=== PATIENT | female | born 2000 | race Caucasian/White ===

== ENCOUNTER 2024-12-29 10:45 | Emergency (ER) | payer OTHER, SELFPAY ==
[~2024-12-29] VITALS: Ht 167.6 cm; Wt 91.6 kg
[2024-12-29] MEDS: NS (Normal Saline) 0.9% 1,000 ML IV ONE (11:35)
[2024-12-29] MEDS: ONDANSETRON 4MG 2ML VIAL IV ONE (11:35)
[2024-12-29 11:51] LABS: BASO # 0.1 10^3/uL (0.0-0.2); BASO % 0.3 % (0.0-1.0); EOS # 0.0 10^3/uL (0.0-0.5); EOS % 0.2 % (0.0-3.0); LYMPH # 2.0 10^3/uL (1.5-5.0); LYMPH % 12.4 % (24.0-44.0); MONO # 0.8 10^3/uL (0.0-0.8); MONO % 5.2 % (2.0-8.0); NEUTROPHILS # 12.8 10^3/uL (1.5-8.5); NEUTROPHILS % 81.6 % (36.0-66.0); PLATELET COUNT, AUTOMATED 423 10^3/uL (150-450)
[2024-12-29 12:24] LABS: ALT/SGPT 22 U/L (7.0-40); AST/SGOT 24 U/L (<34); CALCIUM LEVEL 9.4 MG/DL (8.5-10.1); CARBON DIOXIDE LEVEL 26 MMOL/L (20-31); CHLORIDE LEVEL 107 MMOL/L (98-107); CREATININE FOR GFR 0.60 MG/DL (0.55-1.30); GLOMERULAR FILTRATION RATE > 90.0 (>60); MAGNESIUM LEVEL 1.9 MG/DL (1.8-2.4); POTASSIUM SERUM 4.5 MMOL/L (3.5-5.1); SODIUM LEVEL 145 MMOL/L (136-145)
[2024-12-29] MEDS: ACETAMINOPHEN 325 MG TAB PO ONE (14:43)
[2024-12-29 14:49] VITALS: BP 128/73; TEMP 97.4; O2SAT 100
== END 2024-12-29 14:54 | disposition home or self-care (01) ==
LOC: M ED 10:45
DX: F10.129 Alcohol abuse with intoxication, unspecified (principal); R11.2 Nausea with vomiting, unspecified; J45.909 Unspecified asthma, uncomplicated; Z88.0 Allergy status to penicillin
CPT/HCPCS: 80048; 80076; 83735; 85025; 96361; 96374; 99284; J2405